=== PATIENT | female | born 1995 | race Caucasian/White ===

== ENCOUNTER 2025-03-04 06:04 | Outpatient (CLI) | payer OTHER ==
[2025-03-04] MEDS ORDERED: GADOTERATE MEGLUMINE 7.5 MMOL/15 ML VIAL IV ONE (06:41)
[2025-03-04] MEDS ORDERED: iohexol 300 MG/1 ML 50ml polymer ONE (06:41)
[2025-03-04] MEDS ORDERED: LIDOcaine 1% 30ml preserv. free vial ONE (06:41)
[2025-03-04] MEDS ORDERED: LIDOcaine 1%/PF 5ML 10 MG/ML VIAL ONE (06:41)
--- NOTE | 2025-03-04 08:06 | RADIOLOGY REPORT ---
ANGIO ARTHROGRAM (A) Date: 03/04/2025 07:20 AM Clinical History: PAIN IN RIGHT KNEE Comparison: None Procedure: Verbal and written informed consent were obtained from the patient for the procedure of right knee ulysses int fluoroscopically guided arthrogram, after the procedure, risks, and benefits of the procedure wer e explained to the patient. Risks include bleeding, infection, reaction to injected medications, and damage to surrounding anatomic structures. The patient's questions were answered. The patient's recent medical history was reviewed. A time out was performed to verify the patient's name, date of , and correct location of the pro cedure, prior to initiation of the procedure. T The patient tolerated the procedure well. There were no immediate complications. Home-care instruct ions were reviewed with the patient prior to the patient's discharge from the fluoroscopy suite. The patient verbally affirmed understanding of these instructions. Impression: Technically successful fluoroscopically guided right knee joint arthrogram. The patient was transpor hoang to MRI for further imaging at the completion of the procedure. Procedure performed by dr. Kitchen
--- NOTE | 2025-03-04 09:55 | RADIOLOGY REPORT ---
CLINICAL INDICATION: 29 years old, Female; PAIN IN RIGHT KNEE. TECHNIQUE: Multiplanar, multisequence MRI of the right knee was performed with intra-articular contra st. Contrast: None. COMPARISON: None FINDINGS: Joint space and synovium: There is adequate distention of the suprapatellar joint with dilute contras t. No synovitis. No Henriquez's cyst. Bones and articular cartilage: There is no evidence of acute fracture or bone marrow edema. The ali gnment is normal. The articular cartilage is preserved in the patellofemoral, medial and lateral fe morotibial compartment. Menisci: The medial meniscus is intact. The lateral meniscus is intact. Tendons and ligaments: The tendons in the posterior knee are intact. The extensor mechanism is inta ct. The anterior cruciate ligament is intact. The posterior cruciate ligament is intact. The m edial collateral ligament and the lateral collateral ligament stabilizing complex are intact. The lashonda otibial band is intact. Muscles: Regional muscles are preserved in bulk and signal characteristics. Other: None. IMPRESSION: 1. No evidence of internal derangement in the right knee.
== END 2025-03-04 23:59 | disposition home or self-care (01) ==
LOC: MRI 06:04
PROVIDERS: ATTEND Orthopaedic Surgery
DX: M25.561 Pain in right knee (principal); M22.41 Chondromalacia patellae, right knee; S83.241A Other tear of medial meniscus, current injury, right knee, initial encounter; X58.XXXA Exposure to other specified factors, initial encounter; Y93.89 Activity, other specified; Y92.89 Other specified places as the place of occurrence of the external cause; Y99.8 Other external cause status
CPT/HCPCS: 27369; 73722; 77002; A9575; J2003; J3490; Q9967